=== PATIENT | female | born 2000 | race Caucasian/White ===

== ENCOUNTER 2020-03-19 04:17 | Observation (INO) ==
[2020-03-19] MEDS ORDERED: KETOROLAC TROMETHAMINE 15 MG/ML VIAL IV STA (04:29)
[2020-03-19] MEDS ORDERED: SODIUM CHLORIDE 0.9% 500 ML IV STA (04:29)
[2020-03-19] MEDS ORDERED: ONDANSETRON INJ 2 MG/ML 2 ML VIAL IV STA ×2 (04:34→05:29)
[2020-03-19] MEDS ORDERED: SODIUM CHLORIDE 0.9% 1000ML 1,000 ML IV ONE (04:34)
[2020-03-19] MEDS ORDERED: MoRPHine SULFATE 4 MG/ML 1 ML CARP\\VIAL IV STA ×2 (04:34→05:29)
--- NOTE | 2020-03-19 04:36 | Emergency Department Note ---
History of Present Illness General Chief complaint: Kidney Stone Stated complaint: KIDNEY STONE Time Seen by Provider: 03/19/20 04:29 History of Present Illness Maximum Pain Intensity: 10 This 20-year-old presents to the ER complaining of left flank pain that goes to her groin Location: Left flank Quality: Painful Severity: Moderate Duration: Today Timing: Today Context: Patient was concerned and came in Modifying factors: better with nothing; worse with activity Patient denies chest pain, dyspnea, fevers, urinary symptoms, vaginal itching or discharge. Last menstrual was 3 weeks ago. No prior abdominal surgeries. Home Medications Home Medications Medication Instructions Recorded Confirmed Type desogestrel-ethinyl estradiol 1 tab PO HS 06/21/19 03/19/20 History [Velivet Triphasic Regimen (28)] dextroamphetamine-amphetamine 10 mg PO QAM 06/21/19 03/19/20 History meloxicam 15 mg PO DIRECTED PRN 06/21/19 03/19/20 History topiramate 50 mg PO HS 06/21/19 03/19/20 History cefdinir 300 mg PO BID 6 Days #12 cap 03/19/20 Rx ondansetron 4 mg PO Q6H PRN #30 tab 03/19/20 Rx oxycodone 5 mg PO Q6H PRN #7 tab 03/19/20 Rx tamsulosin 0.4 mg PO HS #7 cap 03/19/20 Rx Allergies Allergy/AdvReac Type Severity Reaction Status Date / Time Penicillins Allergy Intermediate Rash Verified 03/19/20 04:58 Past Med/Surg History Medical History (Updated 03/19/20 @ 14:05 by GUCCI Leavitt) ADHD COVID-19 Depression Migraine PCOS (polycystic ovarian syndrome) Surgical History No pertinent past surgical history Family History Other No pertinent family history Social History (Updated 03/19/20 @ 08:58 by Brent Cardona PA-C) Smoking Status: Former smoker Tobacco Type: E-cigarettes / Vaping Age Quit Using Tobacco: 20; Cigarettes Per Day: Quit 7 months ago; Second Hand Exposure: No; Do You Dip or Chew Tobacco: No; Tobacco Cessation Education Requested by Patient: No Hx Alcohol Use: Yes Alcohol type: beer and hard liquor Hx Substance Use: No Preferred Language: Bulgarian Or Scrub Tech Required: Yes Beliefs That Will Affect Care: None Current Living Situation: Other Current Living Situation Comment: College student- Lives off campus with (3) room mates current occupational status: employed and student Other Information That Helps Us Care for You: No Feels Safe at Home: Yes Safety Concerns: Feels Safe At This Time Review of Systems A total of 10 systems reviewed and were otherwise negative Physical Exam Vital Signs Vital Signs - 24 hr 03/19/20 04:20 03/19/20 05:35 03/19/20 07:28 Pulse Rate 67 Pulse Rate [Finger] 65 88 Respiratory Rate 22 18 16 Respiratory Effort / Characteristics Non-Labored Spontaneous Non-Labored Spontaneous Respiratory Depth Normal Normal Respiratory Pattern Regular Regular Blood Pressure 117/63 Blood Pressure [Left Arm] 113/77 116/82 Blood Pressure Mean 81 Blood Pressure Mean [Left Arm] 89 93 Blood Pressure Position Sitting Blood Pressure Position [Left Arm] Lying Lying Pulse Oximetry 98 100 100 Oxygen Delivery Method Room Air Room Air Room Air Sepsis Recent Fever Within 48 Hours No Sepsis New/Unexplained Change in Mental Status No Sepsis Action Taken by Nursing No Action Required VITALS: Vitals are noted on the nurse's note and reviewed by myself. Vital signs stable. GENERAL: Pleasant female who appears in pain, in no acute distress, nondiaphoretic, well-developed well-nourished. SKIN: Capillary reflex less than 2 seconds. HEENT: Normocephalic. PERRLA. EOMI. Nares patent. Mucous membranes moist. Neck is supple without nuchal rigidity. HEART: Regular rate and rhythm without murmurs gallops or rubs. LUNGS: Clear to auscultation bilaterally without wheezes, rales or rhonchi. No retractions or accessory muscle use. ABDOMEN: Positive bowel sounds x 4. Normal tympanic percussion. Soft, n ontender, without masses or organomegaly. Reed sign negative. No guarding or rebound tenderness. No CVA tenderness MUSCULOSKELETAL: No gross musculoskeletal defects. NEURO: Patient was alert and oriented to person place and time. No focal neurological deficits. Course Administered Medications Acetaminophen (Acetaminophen 325 Mg Tab) 650 mg PO Q4H PRN PRN Reason: pain/fever Stop: 04/18/20 11:39 Last Admin: 03/19/20 18:02 Dose: 650 mg Documented by: [id number] Hydromorphone HCl (Hydromorphone Inj 0.5 Mg/0.5 Ml Syr) 0.5 mg IV Q4H PRN PRN Reason: Pain Stop: 04/02/20 11:59 Last Admin: 03/19/20 20:20 Dose: 0.5 mg Documented by: [id number] Sodium Chloride (Nss 1000ml) 1,000 mls @ 150 mls/hr IV .Q6H40M PETE Stop: 04/18/20 08:59 Last Admin: 03/19/20 17:32 Dose: 150 mls/hr Documented by: [id number] Infusion: 03/19/20 17:12 Dose: 150 mls/hr Documented by: [id number] Admin: 03/19/20 10:31 Dose: 150 mls/hr Documented by: [id number] Tamsulosin HCl (Tamsulosin Hcl 0.4 Mg Cap) 0.4 mg PO HS [facility] Stop: 04/18/20 20:59 Last Admin: 03/19/20 20:28 Dose: 0.4 mg Documented by: [id number] Topiramate (Topiramate 50 Mg Tab) 50 mg PO HS [facility] Stop: 04/18/20 20:59 Last Admin: 03/19/20 20:20 Dose: Not Given Documented by: [id number] Discontinued Medications Hydromorphone HCl (Hydromorphone Inj 0.5 Mg/0.5 Ml Syr) Confirm Administered Dose 0.5 mg .ROUTE .STK-MED ONE Stop: 03/19/20 10:26 Last Admin: 03/19/20 10:29 Dose: Not Given Documented by: [id number] Hydromorphone HCl (Hydromorphone Inj 0.5 Mg/0.5 Ml Syr) 0.5 mg IV NOW STA Stop: 03/19/20 10:27 Last Admin: 03/19/20 10:28 Dose: 0.5 mg Documented by: [id number] Sodium Chloride (Nss) 500 mls @ 999 mls/hr IV .Q31M STA Stop: 03/19/20 04:59 Last Admin: 03/19/20 05:57 Dose: Not Given Documented by: [id number] Sodium Chloride (Nss 1000ml) 1,000 mls @ 999 mls/hr IV .Q1H1M ONE Stop: 03/19/20 05:34 Last Infusion: 03/19/20 05:43 Dose: 0 mls/hr Documented by: [id number] Admin: 03/19/20 04:42 Dose: 999 mls/hr Documented by: [id number] Ceftriaxone Sodium (Rocephin) 2,000 mg in 70 mls @ 140 mls/hr IV NOW STA Stop: 03/19/20 09:18 Last Infusion: 03/19/20 09:43 Dose: 0 mls/hr Documented by: [id number] Admin: 03/19/20 09:07 Dose: 140 mls/hr Documented by: [id number] Influenza Virus Vaccine Quadrival (Influenza Virus Quad Vaccine 0.5 Ml Syr) 0.5 ml IM .ONCE ONE Stop: 03/19/20 12:10 Last Admin: 03/19/20 17:32 Dose: 0.5 ml Documented by: [id number] Ketorolac Tromethamine (Ketorolac Tromethamine 15 Mg/Ml Vial) 10 mg IV NOW STA Stop: 03/19/20 04:30 Last Admin: 03/19/20 04:42 Dose: 10 mg Documented by: [id number] Morphine Sulfate (Morphine Sulfate 4 Mg/Ml 1 Ml Carp\Vial) 4 mg IV NOW STA Stop: 03/19/20 04:35 Last Admin: 03/19/20 04:45 Dose: 4 mg Documented by: [id number] Morphine Sulfate (Morphine Sulfate 4 Mg/Ml 1 Ml Carp\Vial) 4 mg IV NOW STA Stop: 03/19/20 05:30 Last Admin: 03/19/20 05:35 Dose: 4 mg Documented by: [id number] Morphine Sulfate (Morphine Sulfate 2 Mg/Ml Carp) 2 mg IV NOW STA Stop: 03/19/20 07:52 Last Admin: 03/19/20 08:17 Dose: 2 mg Documented by: [id number] Ondansetron HCl (Ondansetron Inj 2 Mg/Ml 2 Ml Vial) 4 mg IV NOW STA Stop: 03/19/20 04:35 Last Admin: 03/19/20 04:45 Dose: 4 mg Documented by: [id number] Ondansetron HCl (Ondansetron Inj 2 Mg/Ml 2 Ml Vial) 4 mg IV NOW STA Stop: 03/19/20 05:30 Last Admin: 03/19/20 05:35 Dose: 4 mg Documented by: [id number] Oxycodone/Acetaminophen (Oxycodone/Acetaminophen 5mg/325mg Tab) 1 tab PO NOW STA Stop: 03/19/20 15:52 Last Admin: 03/19/20 16:04 Dose: 1 tab Documented by: [id number] Potassium Chloride (Potassium Chloride 10 Meq Tabcr) 30 meq PO NOW STA Stop: 03/19/20 05:51 Last Admin: 03/19/20 05:59 Dose: 30 meq Documented by: [id number] Potassium Chloride (Potassium Chloride 20 Meq Tabcr) 40 meq PO NOW STA Stop: 03/19/20 11:41 Last Admin: 03/19/20 13:13 Dose: 40 meq Documented by: [id number] Tamsulosin HCl (Tamsulosin Hcl 0.4 Mg Cap) 0.4 mg PO NOW ONE Stop: 03/19/20 05:40 Last Admin: 03/19/20 05:59 Dose: 0.4 mg Documented by: [id number] Medical Decision Making Medical Records Attestation: I reviewed the patient's medical records. Home Medications Current Medication List: was personally reviewed by me Laboratory Data Attestation: I reviewed the patient's lab results. Result diagrams: 03/19/20 04:51 03/19/20 04:51 Lab Results 03/19/20 03/19/20 03/19/20 Range/Units 04:51 04:51 04:51 WBC 12.56 H (4.8-10.8) K/uL RBC 4.26 (4.2-5.4) M/uL Hgb 12.9 (12.0-16.0) g/dL Hct 37.1 (37-47) % MCV 87.1 (80-100) fL MCH 30.3 (25-34) pg MCHC 34.8 (32-36) g/dL RDW Std Deviation 40.7 (36.4-46.3) fL RDW Coeff of Terese 12.9 (11.5-14.5) % Plt Count 240 (130-400) K/uL MPV 10.1 (7.4-10.4) fL Sodium 141 (136-145) mmol/L Potassium 3.2 L (3.5-5.1) mmol/L Chloride 112 H (98-107) mmol/L Carbon Dioxide 21 (21-32) mmol/L Anion Gap 8.0 (3-11) BUN 13 (7-18) mg/dl Creatinine 0.92 (0.6-1.2) mg/dl Est Cr Clr Drug Dosing 87.0 ml/min Est GFR ( Amer) 103.2 Est GFR (Non-Af Amer) 89.0 BUN/Creatinine Ratio 13.6 (10-20) Glucose 142 H (70-99) mg/dl Calcium 9.8 (8.5-10.1) mg/dl Magnesium 2.1 (1.8-2.4) mg/dl Urine Color Urine Appearance (Clear) Urine pH (4.5-7.5) Ur Specific [place] (1.000-1.030) Urine Protein (Negative) Urine Glucose (UA) (Negative) Urine Ketones (Negative) Urine Blood (Negative) Urine Nitrite (Negative) Urine Bilirubin (Negative) Urine Urobilinogen (Negative) Ur Leukocyte Esterase (Negative) Urine WBC (Auto) (0-5) /hpf Urine RBC (Auto) (0-4) /hpf U Hyaline Cast (Auto) (0-5) /lpf U Epithel Cells (Auto) (0-5) /lpf Urine Bacteria (Auto) (Negative) Urine Test (Negative) COVID-19 Eval Order SARS-CoV-2, RNA, NAAT (NEGATIVE) 03/19/20 03/19/20 03/19/20 Range/Units 05:39 05:39 08:10 WBC (4.8-10.8) K/uL RBC (4.2-5.4) M/uL Hgb (12.0-16.0) g/dL Hct (37-47) % MCV (80-100) fL MCH (25-34) pg MCHC (32-36) g/dL RDW Std Deviation (36.4-46.3) fL RDW Coeff of Terese (11.5-14.5) % Plt Count (130-400) K/uL MPV (7.4-10.4) fL Sodium (136-145) mmol/L Potassium (3.5-5.1) mmol/L Chloride (98-107) mmol/L Carbon Dioxide (21-32) mmol/L Anion Gap (3-11) BUN (7-18) mg/dl Creatinine (0.6-1.2) mg/dl Est Cr Clr Drug Dosing ml/min Est GFR ( Amer) Est GFR (Non-Af Amer) BUN/Creatinine Ratio (10-20) Glucose (70-99) mg/dl Calcium (8.5-10.1) mg/dl Magnesium (1.8-2.4) mg/dl Urine Color Yellow Urine Appearance Turbid A (Clear) Urine pH 5.0 (4.5-7.5) Ur Specific [place] 1.016 (1.000-1.030) Urine Protein Negative (Negative) Urine Glucose (UA) Negative (Negative) Urine Ketones 2+ H (Negative) Urine Blood 2+ H (Negative) Urine Nitrite Negative (Negative) Urine Bilirubin Negative (Negative) Urine Urobilinogen Negative (Negative) Ur Leukocyte Esterase Negative (Negative) Urine WBC (Auto) 1-5 (0-5) /hpf Urine RBC (Auto) 10-30 H (0-4) /hpf U Hyaline Cast (Auto) 5-10 H (0-5) /lpf U Epithel Cells (Auto) >30 H (0-5) /lpf Urine Bacteria (Auto) Negative (Negative) Urine Test Negative (Negative) COVID-19 Eval Order SARS-CoV-2, RNA, NAAT NEGATIVE (NEGATIVE) 03/19/20 Range/Units 08:10 WBC (4.8-10.8) K/uL RBC (4.2-5.4) M/uL Hgb (12.0-16.0) g/dL Hct (37-47) % MCV (80-100) fL MCH (25-34) pg MCHC (32-36) g/dL RDW Std Deviation (36.4-46.3) fL RDW Coeff of Terese (11.5-14.5) % Plt Count (130-400) K/uL MPV (7.4-10.4) fL Sodium (136-145) mmol/L Potassium (3.5-5.1) mmol/L Chloride (98-107) mmol/L Carbon Dioxide (21-32) mmol/L Anion Gap (3-11) BUN (7-18) mg/dl Creatinine (0.6-1.2) mg/dl Est Cr Clr Drug Dosing ml/min Est GFR ( Amer) Est GFR (Non-Af Amer) BUN/Creatinine Ratio (10-20) Glucose (70-99) mg/dl Calcium (8.5-10.1) mg/dl Magnesium (1.8-2.4) mg/dl Urine Color Urine Appearance (Clear) Urine pH (4.5-7.5) Ur Specific [place] (1.000-1.030) Urine Protein (Negative) Urine Glucose (UA) (Negative) Urine Ketones (Negative) Urine Blood (Negative) Urine Nitrite (Negative) Urine Bilirubin (Negative) Urine Urobilinogen (Negative) Ur Leukocyte Esterase (Negative) Urine WBC (Auto) (0-5) /hpf Urine RBC (Auto) (0-4) /hpf U Hyaline Cast (Auto) (0-5) /lpf U Epithel Cells (Auto) (0-5) /lpf Urine Bacteria (Auto) (Negative) Urine Test (Negative) COVID[facility]19 [facility], RNA, NAAT (NEGATIVE) Imaging Data Attestation: I personally reviewed and interpreted this imaging study as follows: MDM Narrative Prior records/ancillary studies reviewed. Triage Nursing notes reviewed. Additional history obtained from the boyfriend The patient's history was concerning for left flank pain. Differential diagnosis: Etiologies such as renal colic, appendicitis, diverticulitis, mesenteric ischemia, aortic pathology, infections, inflammatory bowel disease, PUD, biliary pathology, UTI, as well as others were entertained. Physical examination findings: As above. ER treatment provided: Toradol, morphine, Zofran, IV fluids, Flomax On reassessment the patient felt better. Diagnostic interpretation by me: The labs revealed mild leukocytosis. Urinalysis revealed There was no sign of UTI. neg hcg Imaging studies: CT ABDOMEN & PELVIS Without Contrast: 5 mm obstructing calculus in the left distal ureter near the UVJ. Mild left hydroureteronephrosis. Nonobstructing left renal calculus. Normal appendix. Levoscoliosis of the thoracolumbar spine Radiologist: Leslie Qiu M.D. Consultation: A consultation was placed with the [facility] hospitalist. The case was discussed and diagnostics were reviewed. The patient was evaluated in the ER for further treatment. It appears that the patient has isolated renal colic from a left sided stone. Patient's pain was still quite severe despite 3 rounds of pain meds. She was given Flomax. She is requesting admission. Medicine was consulted. By the evaluation outlined above emergent etiologies such as appendicitis, diverticulitis, mesenteric ischemia, aortic pathology, infections, inflammatory bowel disease, PUD, biliary pathology, UTI, as well as others were deemed relatively unlikely. The pt informed about the findings as listed above. All questions were answered and pleased with the treatment. The chart was completed utilizing [employer] Speech voice recognition software. Grammatical errors, random word insertions, pronoun errors, and incomplete sentences are an occassional consequence of this system due to software limitations, ambient noise, and hardware issues. Any formal questions or concerns about the content, text, or information contained within the body of this dictation should be directly addressed to the physician junior assistant manager for clarification. Impression & Plan Renal colic on left side, Ureterolithiasis, Intractable pain Discharge Plan Visit Data Chief Complaint: Kidney Stone Stated Complaint: KIDNEY STONE ED Provider: Natividad Kent ED Midlevel Provider: Shaye Quinones Discharge Problem: Renal colic on left side, Ureterolithiasis, Intractable pain Patient Disposition: Admitted As Inpatient Condition: Good Discharge Instructions Interventions: ED Discharge Assessment Last Done: 03/19/20 11:26
[2020-03-19 05:04] LABS: Hematocrit (blood only) 37.1 % (37-47); Hemoglobin 12.9 g/dL (12.0-16.0); Mean Corpuscular Hemoglobin 30.3 pg (25-34); Mean Corpuscular Hgb Conc 34.8 g/dL (32-36); Mean Corpuscular Volume 87.1 fL (80-100); Mean Platelet Volume 10.1 fL (7.4-10.4); Platelet Count 240 K/uL (130-400); RDW Coefficient of Variation 12.9 % (11.5-14.5); RDW Standard Deviation 40.7 fL (36.4-46.3); Red Blood Count 4.26 M/uL (4.2-5.4); White Blood Count 12.56 K/uL (4.8-10.8)
[2020-03-19 05:22] LABS: BUN Creatinine Ratio 13.6 (10-20); Calcium 9.8 mg/dl (8.5-10.1); Est GFR (African American) 103.2; Potassium 3.2 mmol/L (3.5-5.1)
[2020-03-19] MEDS ORDERED: TAMSULOSIN HCL 0.4 MG CAP PO ONE (05:39)
[2020-03-19] MEDS ORDERED: POTASSIUM CHLORIDE 10 MEQ TABCR PO STA (05:50)
[2020-03-19 05:52] LABS: Appearance Urine Turbid (Clear); Bacteria Urine Automated Negative (Negative); Bilirubin Urine Negative (Negative); Blood Urine 2+ (Negative); Color Urine Yellow; Epithelial Cell Urine Auto >30 /lpf (0-5); Glucose Urine UA Negative (Negative); Ketones Urine 2+ (Negative); Leukocyte Esterase Urine Negative (Negative); Nitrite Urine Negative (Negative); Protein Urine Negative (Negative); Specific Gravity Urine 1.016 (1.000-1.030); Urobilinogen Urine Negative (Negative)
[2020-03-19 05:54] LABS: Pregnancy Test, Urine Negative (Negative)
--- NOTE | 2020-03-19 07:12 | CT Scan Report ---
CT SCAN OF THE ABDOMEN AND PELVIS WITHOUT CONTRAST CLINICAL HISTORY: Left flank pain COMPARISON STUDY: No previous studies for comparison. TECHNIQUE: CT scan of the abdomen and pelvis was performed from the lung bases to the proximal femurs . Images are reviewed in the axial, sagittal, and coronal planes. IV contrast was not administered fo r this examination. A dose lowering technique was utilized adhering to the principles of ALARA. CT DOSE: 737.34 mGy.cm FINDINGS: Lower chest: The heart is normal in size and configuration, without pericardial effusion. The lung ba ses and pleural spaces are clear. Liver: There is mild hepatic steatosis. No focal masses are visualized on this noncontrast study. Gallbladder: Unremarkable. Spleen: Normal in size and attenuation. Pancreas: Unremarkable. Adrenal glands: Unremarkable. Kidneys: There is a 2.5 mm upper pole left renal calculus. There is left-sided hydronephrosis and hyd roureter. There is a 4 mm left UVJ calculus. Bowel: There are no transition zones indicate bowel obstruction. There is no evidence of acute divert iculitis. There is no evidence of acute appendicitis. Peritoneum: There is no intraperitoneal free air or abdominal ascites. Vasculature: The abdominal aorta is normal in course and caliber. Adenopathy: None. Pelvic viscera: The bladder, and pelvic viscera are unremarkable. Skeletal structures: No destructive osseous lesions are seen. There is thoracolumbar levoscoliosis. IMPRESSION: 1. 4 mm obstructing calculus at the level of the left UVJ 2. Left-sided nephrolithiasis ACT 112: Negative or not required by law. Electronically signed by: Ezekiel Grant M.D. 03/19/2020 7:11 AM
[2020-03-19] MEDS ORDERED: MoRPHine SULFATE 2 MG/ML CARP IV STA (07:51)
[2020-03-19] MEDS ORDERED: cefTRIAXone SODIUM 2,000 MG/70 ML BAG IV STA (08:49)
--- NOTE | 2020-03-19 09:05 | History & Physical Report ---
Date of Service March 19, 2020 Assessment & Plan (1) Ureterolithiasis: [address] abdomen pelvis Normal saline 150 mL/h Strain all urine Empirically start ceftriaxone Consult urology Keep n.p.o. with exception of ice chips until seen by urology (2) COVID-19: Positive for COVID-19 in early February. Did not require treatment Was in quarantine until 03/05/2020 Lives off campus with 3 roommates. All 3 roommates were also positive Currently with fever which is most likely associated with urolithiasis Nausea and vomiting most likely associated with urolithiasis No shortness of breath Persistent loss of taste and smell which is improving but still present Rapid assay using Her[employer] testing is currently pending (3) Hypokalemia: Most likely secondary to gastrointestinal losses from vomiting Will replete with oral replacement once nausea and vomiting is controlled Check magnesium level Follow serial labs (4) ADHD: Continue dextroamphetamine amphetamine (5) Depression: No current issues (6) Migraine: No current headache Continue topiramate (7) PCOS (polycystic ovarian syndrome): No acute findings on CT abdomen pelvis Supportive care (8) DVT prophylaxis: No chemical prophylaxis at this time pending disposition with urology for obstructing kidney stone Ambulate as tolerated SCDs when in bed Please refer to Dr. Norwood's addendum for further recommendations and treatment History of Present Illness Primary Care Provider: Shahriar Gallego MD Attending: Dr. Norwood This is a 20-year-old female with a past medical history including positive COVID-19 (completed quarantine 03/05/2020), ADHD, depression, history of migraine headaches, PCOS. The patient presented with left-sided pain that went from her umbilicus around to her left flank and into her back. She had fever at home and reported some fever here in the emergency department. She also had nausea and vomiting times several events. She reports that she was in her usual state of health until about 10:00 last night when she began having abdominal pain. The pain awoke her throughout the night and she reported to the emergency room for evaluation. A CT scan of the abdomen pelvis was positive for a 4 mm obstructing calculus on the left. Patient received analgesia while in the emergency department as well as normal saline. She continues to have some nausea but vomiting seems to be improved. She is requesting additional analgesia for her pain. She has no chest pain or tightness. She still does have some loss of taste and smell which is improving. She denies any cough or sputum production. She denies any diarrhea and reports daily bowel movements. She has no gross hematuria. She denies any melena, hematochezia, bright red blood per rectum. She has no hematemesis. The patient is a student at [employer] and lives off campus. She has 3 roommates. All of them tested positive for COVID-19 earlier in February. The patient still has residual symptoms. She denies tobacco abuse in the form of cigarettes or smokeless tobacco. She does report history of vaping with a 1-1/2-year history and states that she quit over the summer. She also reports intermediate use of marijuana but has not used that since the summer as well. She has no other history of substance abuse or ethanol abuse. The patient did have a urine test which is negative. She denies history of STD. Allergies Allergy/AdvReac Type Severity Reaction Status Date / Time Penicillins Allergy Intermediate Rash Verified 03/19/20 04:58 Home Medications Home Medications Medication Instructions Recorded Confirmed Type desogestrel-ethinyl estradiol 1 tab PO HS 06/21/19 03/19/20 History [Velivet Triphasic Regimen (28)] dextroamphetamine-amphetamine 10 mg PO QAM 06/21/19 03/19/20 History meloxicam 15 mg PO DIRECTED PRN 06/21/19 03/19/20 History topiramate 50 mg PO HS 06/21/19 03/19/20 History cefdinir 300 mg PO BID 6 Days #12 cap 03/19/20 Rx ondansetron 4 mg PO Q6H PRN #30 tab 03/19/20 Rx oxycodone 5 mg PO Q6H PRN #7 tab 03/19/20 Rx tamsulosin 0.4 mg PO HS #7 cap 03/19/20 Rx Past Med/Surg History Medical History (Updated 03/19/20 @ 14:05 by GUCCI Leavitt) ADHD COVID-19 Depression Migraine PCOS (polycystic ovarian syndrome) Surgical History No pertinent past surgical history Family History Other No pertinent family history Social History (Updated 03/19/20 @ 08:58 by Brent Cardona PA-C) Smoking Status: Former smoker Tobacco Type: E-cigarettes / Vaping Age Quit Using Tobacco: 20; Cigarettes Per Day: Quit 7 months ago; Second Hand Exposure: No; Do You Dip or Chew Tobacco: No; Tobacco Cessation Education Requested by Patient: No Hx Alcohol Use: Yes Alcohol type: beer and hard liquor Hx Substance Use: No Preferred Language: [place] Commercial Manager Required: Yes Beliefs That Will Affect Care: None Current Living Situation: Other Current Living Situation Comment: College student- Lives off campus with (3) room mates current occupational status: employed and student Other Information That Helps Us Care for You: No Feels Safe at Home: Yes Safety Concerns: Feels Safe At This Time Review of Systems Review of Systems: All systems reviewed & are unremarkable except as noted in HPI & below Physical Exam Physical Exam: GENERAL : No acute distress EYES: No icterus, gaze conjugate. Pupils equal round and reactive to light NOSE: No evidence of epistaxis MOUTH: No lesions or candidiasis. Mucosa dry. Good oral hygiene. NECK: Supple LUNGS: CTA B/L, no wheezes, rales or rhonchi HEART: Regular, rate controlled ABDOMEN: Soft, ND, BS Present. Patient is tender to palpation on the left lower quadrant EXTREMITIES: No LE edema, pedal pulses intact intact and equal bilaterally. Tattoo noted on the medial aspect of the right ankle. NEURO: A&OX3. Cranial nerves II through XII appear grossly intact without focal deficit Results & Data Results & Data ([facility]) Vital Signs (Past 12 Hours) Vital Signs Pulse Pulse Resp BP BP Pulse Ox 03/19/20 07:28 88 16 116/82 100 03/19/20 05:35 65 18 113/77 100 03/19/20 04:20 67 22 117/63 98 Laboratory Results 03/19/20 04:51 03/19/20 04:[address] SCAN OF THE ABDOMEN AND PELVIS WITHOUT CONTRAST CLINICAL HISTORY: Left flank pain COMPARISON STUDY: No previous studies for comparison. TECHNIQUE: CT scan of the abdomen and pelvis was performed from the lung bases to the proximal femurs. Images are reviewed in the axial, sagittal, and coronal planes. IV contrast was not administered for this examination. A dose lowering technique was utilized adhering to the principles of ALARA. CT DOSE: 737.34 mGy.cm FINDINGS: Lower chest: The heart is normal in size and configuration, without pericardial effusion. The lung bases and pleural spaces are clear. Liver: There is mild hepatic steatosis. No focal masses are visualized on this noncontrast study. Gallbladder: Unremarkable. Spleen: Normal in size and attenuation. Pancreas: Unremarkable. Adrenal glands: Unremarkable. Kidneys: There is a 2.5 mm upper pole left renal calculus. There is left-sided hydronephrosis and hydroureter. There is a 4 mm left UVJ calculus. Bowel: There are no transition zones indicate bowel obstruction. There is no evidence of acute diverticulitis. There is no evidence of acute appendicitis. Peritoneum: There is no intraperitoneal free air or abdominal ascites. Vasculature: The abdominal aorta is normal in course and caliber. Adenopathy: None. Pelvic viscera: The bladder, and pelvic viscera are unremarkable. Skeletal structures: No destructive osseous lesions are seen. There is thoracolumbar levoscoliosis. IMPRESSION: 1. 4 mm obstructing calculus at the level of the left UVJ 2. Left-sided nephrolithiasis Electronically signed by: Ezekiel Grant M.D. 03/19/2020 7:11 AM Code Status & VTE Plan Code Status Level I: Full resuscitation VTE Prophylaxis Plan VTE Prophylaxis will be ordered: Yes Supervising Physician Co-Signing Physician Notes I personally examined the patient and verified all neal points of history and exam, discussed case, and agree with decision making with Shubham RAMIREZ seen later in the day - initially when i saw her she was feeling a good deal better and thought maybe about going home - we discussed trial of PO pain meds. ordered a dose as she noted that pain was starting to increase some again. later revisited - she noted that the pain had gotten to a 10 before PO pain meds - but then down to a 2 with them. wanted to see how she felt a little longer - revisited yet again - pain increasing again and worried about going home -- disc ussed uncontrolled pain certainly makes it reasonable to stay vitals noted heent nc at mmm breathing unlabored no accessory muscles good effort skin no rashes no pallor or icterus ureterolithiasis, intractable pain -pain control, fluids. -add flomax -w fever - abx, follow -appears improving PG Care Time/CCT Total # of Minutes Spent Total Time Spent with Patient: Total time spent is greater than 50% in coordination of care (as documented) at patient's floor/unit and/or counseling patient: 50 minutes Coding Level of Care Code 40450 OBS Care - Level 3 Diagnoses Ureterolithiasis N20.1 COVID-19 U07.1 Hypokalemia E87.6 ADHD F90.9 Depression F32.9 Migraine G43.909 PCOS (polycystic ovarian syndrome) E28.2 DVT prophylaxis Z29.9
[2020-03-19] MEDS ORDERED: HYDROmorphone INJ 0.5 MG/0.5 ML SYR ONE (10:25)
[2020-03-19] MEDS ORDERED: HYDROmorphone INJ 0.5 MG/0.5 ML SYR IV STA (10:26)
[2020-03-19] MEDS: SODIUM CHLORIDE 0.9% 1000ML 1,000 ML IV SCH ×3 (10:31→23:24)
[2020-03-19] MEDS ORDERED: POTASSIUM CHLORIDE CRTAB 20 MEQ TABCR PO STA (11:40)
[2020-03-19] MEDS ORDERED: ONDANSETRON INJ 2 MG/ML 2 ML VIAL IV PRN (11:40)
[2020-03-19] MEDS ORDERED: INFLUENZA ADMINISTRATION CHARGE ONE (12:09)
[2020-03-19] MEDS ORDERED: INFLUENZA VIRUS QUAD VACCINE 0.5 ML SYR IM ONE (12:09)
--- NOTE | 2020-03-19 14:06 | Urology Consultation ---
Date of Consultation March 19, 2020 Assessment & Plan (1) Left ureteral stone: 20yo F admitted with L flank pain, nausea, and vomiting secondary to a 4mm left ureteral stone with hydronephrosis -Plan of care reviewed with Dr. Gomez -Patient afebrile, creatinine is stable -Discussed options for acute stone management with ureteroscopy, stone extraction, and stent -Discussed outpatient options for conservative measures with max expulsion medical therapy -Discussed possible outpatient ESWL, KUB ordered -Risks/benefits of all procedures discussed -Patient prefers trial of passage with possible outpatient ESWL next Monday if she does not pass the stone before then -No acute intervention planned today -Ok to have a diet back -Will tentatively schedule her for Left ESWL next Monday, repeat KUB prior to procedure -Reviewed in detail signs/symptoms that would warrant return to the hospital, patient verbalized an understanding. -Reviewed risks/benefits of ESWL as per consent, all questions were answered. -Recommend home with Tamsulosin and pain control. -Continue to strain all urine -Ok for discharge from perspective -Will follow-up outpatient with Urology service to arrange elective procedure -Patient agreeable to above plan. Please consult our service urgently if patient develops fever >101F, intractable pain or nausea, as this will necessitate urgent surgical intervention. Thank you for the consultation and we will continue to monitor closely with primary servic eAlivia History of Present Illness Attending Physician: Tavo Norowod DO History of Present Illness 20yo F, with PMHx including ADHD, depression, history of migraine headaches, and PCOS who presented to the ER with c/o L flank pain, nausea, vomiting, and fevers. A CT scan of the abdomen pelvis was positive for a 4 mm obstructing calculus on the left. She was admitted for pain control and IVF. Urology consulted for 4mm left UVJ Stone with hydro Has not followed with Urology in the past No prior personal or family hx of stones Chart review: Afebrile WBC 12.56 Cr 0.92 Hgb 12.9 UA- 2+blood, negative leuks, negative bacteria, negative nitrites Imaging -CT abd/pelvis IMPRESSION: 1. 4 mm obstructing calculus at the level of the left UVJ 2. Left-sided nephrolithiasis KUB- IMPRESSION: Unchanged positioning of the left distal ureteral calculus. Patient examined at bedside this afternoon. Awake, resting in bed on arrival. Reports some improvement in L flank pain with IV pain medication. No recent nausea or vomiting. Denies fevers or chills. Denies hematuria and dysuria. No urinary frequency/urgency. Has been NPO. Reports no passage of stone, has been straining all urine. Allergies Allergy/AdvReac Type Severity Reaction Status Date / Time Penicillins Allergy Intermediate Rash Verified 03/19/20 04:58 Home Medications Home Medications Medication Instructions Recorded Confirmed Type desogestrel-ethinyl estradiol 1 tab PO HS 06/21/19 03/19/20 History [Velivet Triphasic Regimen (28)] dextroamphetamine-amphetamine 10 mg PO QAM 06/21/19 03/19/20 History meloxicam 15 mg PO DIRECTED PRN 06/21/19 03/19/20 History topiramate 50 mg PO HS 06/21/19 03/19/20 History Patient History Medical History (Updated 03/19/20 @ 14:05 by GUCCI Leavitt) ADHD COVID-19 Depression Migraine PCOS (polycystic ovarian syndrome) Surgical History No pertinent past surgical history Family History Other No pertinent family history Social History (Updated 03/19/20 @ 08:58 by Brent Cardona PA-C) Smoking Status: Former smoker Tobacco Type: E-cigarettes / Vaping Age Quit Using Tobacco: 20; Cigarettes Per Day: Quit 7 months ago; Second Hand Exposure: No; Do You Dip or Chew Tobacco: No; Tobacco Cessation Education Requested by Patient: No Hx Alcohol Use: Yes Alcohol type: beer and hard liquor Hx Substance Use: No Preferred Language: Vietnamese Gold Letterer Required: Yes Beliefs That Will Affect Care: None Current Living Situation: Other Current Living Situation Comment: College student- Lives off campus with (3) room mates current occupational status: employed and student Other Information That Helps Us Care for You: No Feels Safe at Home: Yes Safety Concerns: Feels Safe At This Time Review of Systems Review of Systems: All systems reviewed & are unremarkable except as noted in HPI & below Physical Exam Constitutional: well developed and well nourished; no acute distress and not ill appearing Neck: normal visual inspection Respiratory: normal respiratory effort and able to speak in complete sentences Cardiovascular: Extremities: no pedal edema Gastrointestinal (Abdomen): Inspection/Auscultation: abdomen normal to inspection Musculoskeletal: Head/Neck/Chest: normocephalic Skin: no rashes, warm and dry Neurologic: awake; not confused Psychiatric: Orientation: alert, oriented x 3 and cooperative Results & Data ([facility]) Vital Signs (Past 12 Hours) Vital Signs Temp Pulse Pulse Resp BP BP Pulse Ox 03/19/20 11:35 36.7 C 96 H 16 126/82 100 03/19/20 11:16 103 H 18 118/74 100 03/19/20 10:32 78 18 128/77 96 03/19/20 09:20 71 16 128/77 98 03/19/20 07:28 88 16 116/82 100 03/19/20 05:35 65 18 113/77 100 03/19/20 04:20 67 22 117/63 98 PG Care Time/CCT Total # of Minutes Spent Total Time Spent with Patient: Total time spent is greater than 50% in coordination of care (as documented) at patient's floor/unit and/or counseling patient: Coding Level of Care Code 95083 Inpt Consult Level 4 Diagnoses Left ureteral stone N20.1
--- NOTE | 2020-03-19 15:10 | XRay Report ---
KUB HISTORY: Follow up study in a patient with left ureteral calculus Left ureteral stone COMPARISON: CT abdomen and pelvis 03/19/2020 FINDINGS: The bowel gas pattern is non-obstructive. There is no organomegaly. Renal shadows are part ially obscured by bowel gas. The known left renal calculi are not definitively seen. Unchanged positi oning of the 4 mm left distal ureteral calculus. No pneumoperitoneum or pneumatosis. Sigmoidal thorac olumbar scoliosis. No fracture. IMPRESSION: Unchanged positioning of the left distal ureteral calculus. ACT 112: Negative or not required by law. The above report was generated using voice recognition software. It may contain grammatical, syntax o r spelling errors. Electronically signed by: Joseph Chavira M.D. 03/19/2020 3:09 PM
[2020-03-19] MEDS ORDERED: oxyCODONE/ACETAMINOPHEN 5mg/325mg TAB PO STA (15:51)
[2020-03-19] MEDS: ACETAMINOPHEN 325 MG TAB PO PRN ×2 (18:02→22:05)
[2020-03-19] MEDS: HYDROmorphone INJ 0.5 MG/0.5 ML SYR IV PRN (20:20)
[2020-03-19] MEDS ORDERED: TAMSULOSIN HCL 0.4 MG CAP PO SCH (21:00)
[2020-03-19] MEDS ORDERED: TOPIRAMATE 50 MG TAB PO SCH (21:00)
[2020-03-19] MEDS ORDERED: KETOROLAC TROMETHAMINE 15 MG/ML VIAL IV ONE (23:46)
[2020-03-20] MEDS: SODIUM CHLORIDE 0.9% 1000ML 1,000 ML IV SCH (05:34)
[2020-03-20] MEDS: HYDROmorphone INJ 0.5 MG/0.5 ML SYR IV PRN ×2 (06:18→10:15)
[2020-03-20] MEDS: ACETAMINOPHEN 325 MG TAB PO PRN ×2 (06:34→14:55)
[2020-03-20 06:41] LABS: Basophils # (auto) 0.01 K/uL (0-0.2); Basophils % (auto) 0.1 %; Eosinophils # (auto) 0.05 K/uL (0-0.5); Eosinophils % (auto) 0.5 %; Hematocrit (blood only) 32.4 % (37-47); Hemoglobin 10.9 g/dL (12.0-16.0); Immature Granulocytes # (auto) 0.02 K/uL (0.00-0.02); Immature Granulocytes % (auto) 0.2 %; Lymphocytes # (auto) 1.89 K/uL (1.2-3.4); Lymphocytes % (auto) 20.2 %; Mean Corpuscular Hemoglobin 30.1 pg (25-34); Mean Corpuscular Hgb Conc 33.6 g/dL (32-36); Mean Corpuscular Volume 89.5 fL (80-100); Mean Platelet Volume 10.1 fL (7.4-10.4); Monocytes # (auto) 0.82 K/uL (0.11-0.59); Monocytes % (auto) 8.8 %; Neutrophils # (auto) 6.56 K/uL (1.4-6.5); Neutrophils % (auto) 70.2 %; Platelet Count 182 K/uL (130-400); RDW Coefficient of Variation 12.9 % (11.5-14.5); RDW Standard Deviation 41.8 fL (36.4-46.3); Red Blood Count 3.62 M/uL (4.2-5.4); White Blood Count 9.35 K/uL (4.8-10.8)
[2020-03-20 07:13] LABS: BUN Creatinine Ratio 7.1 (10-20); Calcium 8.2 mg/dl (8.5-10.1); Creatinine Clr Calc Pharmacy 80.9 ml/min; Est GFR (African American) 94.4; Est GFR (Non-African American) 81.5
--- NOTE | 2020-03-20 08:33 | Urology Progress Note ---
Date of Service March 20, 2020 Assessment & Plan (1) Left ureteral stone: Risks and benefits discussed at length for procedure. These include bleeding, infection, injury to surrounding tissues or organs, and risks associated with anesthesia. Patient states understanding and agrees to proceed. Will sign consent and schedule. Plan for cystoscopy with left stent and possible left ureteroscopy and stone basket extraction and/or laser lithotripsy. Patient has history of COVID and is past the isolation period with a negative test yesterday. Nothing to eat since last evening at dinner. Admission and Anticipated Discharge Date Admission Date: March 19, 2020 Subjective Patient admitted with stone and discomfort. Patient is afebrile. Has been und ergoing maximum expulsion therapy with oral medications, IV medications, IV fluids, and oral intake. Is doing worse this am with increased episodes of pain with bother. No bleeding, fevers, or major issues. Has not developed severe vomiting or other issues. Has not experienced fever or chills. Has been tolerating oral medications. Is tolerating fluids. Has noticed some frequency and urgency. Does have occasional burning and irritation. Patient does not believe the passed a stone. Has not passed a large amount of blood or debris that may be the stone. Review of Systems Review of Systems: All systems reviewed & are unremarkable except as noted in HPI & below Physical Exam Physical Exam: General: Alert in no acute distress. HEENT: Normocephalic Atraumatic. Inspection normal. Cranial Nerves 2-12 Grossly intact. Normal inspection of face. Normal inspection of neck. Psychologic: Normal affect. Respiratory: Nonlabored. No use of accessory muscles. No tachypnea or dyspnea. Cardiovascular: No tachycardia Skin: [place] and Dry. No rashes or visible lesions. Extremities/Lymphatics: No edema Abdomen: Soft Non-distended. No rebound or guarding. Results & Data ([facility]) Vital Signs (Past 12 Hours) Vital Signs Temp Pulse Resp BP Pulse Ox 03/20/20 07:41 37.1 C 90 16 110/71 96 03/19/20 23:26 37.2 C 83 14 124/80 96 PG Care Time/CCT Total # of Minutes Spent Total Time Spent with Patient: Total time spent is greater than 50% in coordination of care (as documented) at patient's floor/unit and/or counseling patient: Coding Level of Care Code 70792 Subseq Hosp Care Lvl 3 Diagnoses Left ureteral stone N20.1
[2020-03-20] MEDS ORDERED: DEXTROAMPHETAMINE/AMPHETAMINE ER 10 MG CAP PO SCH (09:00)
[2020-03-20] MEDS ORDERED: CIPROFLOXACIN / D5W 400 MG/200 ML BAG IV SCH (09:00)
--- NOTE | 2020-03-20 09:21 | XRay Report ---
XR chest 2V PA/lateral HISTORY: pre op COMPARISON: None. FINDINGS: The lungs are clear. Cardiac silhouette is normal in size. No pleural effusions. No pneumot horax. Mild S-shaped scoliosis of the thoracolumbar spine. IMPRESSION: No acute process. Mild scoliosis. ACT 112: Negative or not required by law. Electronically signed by: Raul Quiñones M.D. 03/20/2020 9:20 AM
[2020-03-20] MEDS ORDERED: LIDOCAINE HCL 2% 2 ML VIAL/AMP(20MG/ML) INFIL ONE (10:12)
[2020-03-20] MEDS ORDERED: MIDAZOLAM HCL 1 MG/ML 2ML VIAL ONE ×2 (10:12→10:13)
[2020-03-20] MEDS ORDERED: PROPOFOL IV EMULSION 10 MG/ML 20 ML VIAL IV ONE (10:12)
[2020-03-20] MEDS ORDERED: fentaNYL citrate 100 MCG/2 ML VIAL ONE (10:13)
--- NOTE | 2020-03-20 10:18 | Anesthesiology Consultation ---
Date of Service March 20, 2020 Assessment & Plan (1) Encounter for pre-operative examination: Chart Review Chart Review: Acceptable Risk for Surgery (COVID test today pending ) History Surgery Operation Date: 03/20/20 11:40 Proposed Procedures p Cystoscopy, Left Stent Insertion - Hiren Lion DO Height/Weight Height: 5 ft 2 in Weight: 67.3 kg Allergies Allergy/AdvReac Type Severity Reaction Status Date / Time Penicillins Allergy Intermediate Rash Verified 03/19/20 04:58 Medications Home Medications Medication Instructions Recorded Confirmed Last Taken desogestrel-ethinyl estradiol 1 tab PO HS 06/21/19 03/19/20 03/18/20 [Velivet Triphasic Regimen (28)] dextroamphetamine-amphetamine 10 mg PO QAM 06/21/19 03/19/20 03/18/20 meloxicam 15 mg PO DIRECTED PRN 06/21/19 03/19/20 06/20/19 17:00 topiramate 50 mg PO HS 06/21/19 03/19/20 03/18/20 cefdinir 300 mg PO BID 6 Days #12 cap 03/19/20 Unknown ondansetron 4 mg PO Q6H PRN #30 tab 03/19/20 Unknown oxycodone 5 mg PO Q6H PRN #7 tab 03/19/20 Unknown tamsulosin 0.4 mg PO HS #7 cap 03/19/20 Unknown Active Medications Generic Name Dose Route Start Last Admin Trade Name Freq PRN Reason Stop Dose Admin Acetaminophen 650 mg 03/19/20 11:40 03/20/20 06:34 Acetaminophen 325 Mg Tab PO 04/18/20 11:39 650 mg Q4H PRN Administration pain/fever Hydromorphone HCl 0.5 mg 03/19/20 12:00 03/20/20 10:15 Hydromorphone Inj 0.5 Mg/0.5 Ml Syr IV 04/02/20 11:59 0.5 mg Q4H PRN Administration Pain Sodium Chloride 1,000 mls @ 150 mls/hr 03/19/20 09:00 03/20/20 09:27 Nss 1000ml IV 04/18/20 08:59 0 mls/hr .[id number] PETE Infusion Ciprofloxacin 400 mg in 200 mls @ 100 mls/hr 03/20/20 09:00 03/20/20 09:27 Cipro / D5w IV 03/20/20 18:00 100 mls/hr PREOP PETE Administration Protocol Ondansetron HCl 4 mg 03/19/20 11:40 03/20/20 09:27 Ondansetron Inj 2 Mg/Ml 2 Ml Vial IV 04/18/20 11:39 4 mg Q6H PRN Administration Nausea Tamsulosin HCl 0.4 mg 03/19/20 21:00 03/19/20 20:28 Tamsulosin Hcl 0.4 Mg Cap PO 04/18/20 20:59 0.4 mg HS PETE Administration Topiramate 50 mg 03/19/20 21:00 03/19/20 20:20 Topiramate 50 Mg Tab PO 04/18/20 20:59 Not Given HS PETE Past Medical History Medical History (Updated 03/20/20 @ 10:18 by Shahriar Kelly MD) ADHD Anemia COVID-19 Ended quarantine 03/05 Depression Migraine PCOS (polycystic ovarian syndrome) Past Family History Family History Other No pertinent family history Past Surgical History Surgical History No pertinent past surgical history Social History Smoking Status: Former smoker tobacco type: e-cigarettes Smoking cigarettes per day: Quit 7 months ago Do You Dip or Chew Tobacco: No Hx Alcohol Use: Yes Alcohol type: beer and hard liquor alcohol intake frequency: a few times a month Alcohol Intake Frequency Comment: Pt drinks socially Hx Substance Use: No substance use type: does not use Physical Exam Vital Signs Last Vital Signs Temp 37.1 C 03/20/20 07:41 Pulse 90 03/20/20 07:41 Resp 16 03/20/20 07:41 BP 110/71 03/20/20 07:41 Pulse Ox 96 03/20/20 07:41 Testing Laboratory Results 03/20/20 05:34 03/20/20 05:34 Urine Color Yellow 03/19/20 05:39 Urine Appearance Turbid (Clear) A 03/19/20 05:39 Urine pH 5.0 (4.5-7.5) 03/19/20 05:39 Ur Specific [place] 1.016 (1.000-1.030) 03/19/20 05:39 Urine Protein Negative (Negative) 03/19/20 05:39 Urine Glucose (UA) Negative (Negative) 03/19/20 05:39 Urine Ketones 2+ (Negative) H 03/19/20 05:39 Urine Nitrite Negative (Negative) 03/19/20 05:39 Ur Leukocyte Esterase Negative (Negative) 03/19/20 05:39 Urine WBC (Auto) 1-5 /hpf (0-5) 03/19/20 05:39 Urine RBC (Auto) 10-30 /hpf (0-4) H 03/19/20 05:39 U Hyaline Cast (Auto) 5-10 /lpf (0-5) H 03/19/20 05:39 U Epithel Cells (Auto) >30 /lpf (0-5) H 03/19/20 05:39 Urine Bacteria (Auto) Negative (Negative) 03/19/20 05:39 Urine Test Negative (Negative) 03/19/20 05:39 03/19/20 05:39 Urine Test Negative
[2020-03-20] MEDS ORDERED: fentaNYL citrate 100 MCG/2 ML VIAL IV PRN (10:58)
[2020-03-20] MEDS ORDERED: ONDANSETRON INJ 2 MG/ML 2 ML VIAL IV PRN (10:58)
[2020-03-20] MEDS ORDERED: ATROPINE SULFATE 0.1 MG/ML 10ML SYR IV PRN (10:58)
--- NOTE | 2020-03-20 11:39 | Operative Report ---
PG Post Operative Report Pre & Post Diagnosis Operation Date: 03/20/20 11:40 Pre-Op Diagnosis: OBSTRUCTING UROLITHIASIS Post-Op Diagnosis: OBSTRUCTING UROLITHIASIS I identified the patient and participated in the time-out.: Yes Procedure Operation Date: 03/20/20 11:40 Actual Procedures p Cystoscopy, Left ueteroscopy, stone basket extraction. ureteral dilation, retrograde pyelogram, and Stent Insertion(Left) - Hiren Lion, Surgeon Hiren Lion, II, DO Custody Assistant None Estimated Blood Loss 1 Findings Consistent with Post-Op Diagnosis Stone fragment removed after dilating ureter. Specimens Stone Fragment Drains 4.8 Fr Double J stent without tether Anesthesia Type General Complications none Disposition Disposition: Recovery Room Indications Patient with bothersome stones. Risks and benefits discussed at length. Description of Procedure Patient was consented and brought back to the operating room. Patient was placed under anesthesia in the supine position and moved to the dorsal lithotomy position. Patient was prepped and draped in the regular sterile fashion. A time out was completed. A 30degree Cystoscope was placed into the bladder and the entire bladder was examined. The UO's were identified. The UO was cannulized with a catheter and a retrograde pyelogram was completed. A wire was then placed and the narrowed UO was dilated. The Rigid ureteroscope was taken into the ureter. The stone was identified. The stone was grasped and removed and sent for analysis. The entire area was once again examined. No residual large fragments or areas of concern were noted. The scope was slowly removed with the wire left in place. Contrast was placed through the scope for a pyelogram to assist in stent placement. The entire ureter was examined as the scope was slowly removed. No obstructions or other areas of concern were noted. With the wire in place, a 4.8 Fr Double J stent was placed. It was confirmed with fluoroscopy. With the stent in place, the bladder was emptied. The scope was removed. The patient was cleaned, aroused from anesthesia, and transferred to the pacu in stable condition having tolerated the procedure well with no complications. I was present and participated in all aspects of the procedure. The patient will be monitored in the PACU until transferred. I attest to the content of the Intraoperative Record and any orders documented therein. Any exceptions are noted below.
--- NOTE | 2020-03-20 12:03 | Fluoroscopy Report ---
FL retrograde includes kub CLINICAL HISTORY: LT CYSTO/RETROGRADE/LASER/STENT COMPARISON STUDY: Abdomen and pelvis CT 03/19/2020. FLUOROSCOPY TIME: 21 seconds. FINDINGS: 5 fluoroscopic spot images of the abdomen were submitted. There is retrograde opacification of the left renal collecting system and left ureter followed by placement of a left ureteral stent w hich appears in good position. IMPRESSION: Fluoroscopy provided for left ureteral stent placement which appears in good position. ACT 112: Negative or not required by law. Electronically signed by: Raul Quiñones M.D. 03/20/2020 12:02 PM
--- NOTE | 2020-03-20 12:40 | Anesthesiology Progress Note ---
Date of Service March 20, 2020 Anesthesia Post Procedure Vital Signs Vital Signs: Temp Pulse Pulse Resp BP BP Pulse Ox 03/20/20 12:20 36.8 C 86 18 114/75 98 03/20/20 12:10 89 15 114/73 98 03/20/20 12:00 36.4 C L 84 16 113/70 97 03/20/20 11:50 89 16 112/79 99 03/20/20 11:44 36.8 C 87 20 119/62 98 03/20/20 10:51 36.9 C 89 18 121/80 99 03/20/20 07:41 37.1 C 90 16 110/71 96 03/19/20 23:26 37.2 C 83 14 124/80 96 03/19/20 15:49 36.7 C 64 16 115/71 98 Pain Intensity Left Flank: Pain Intensity: 5 Transfer of Care Handoff Completed per policy Notes Mental Status: alert / awake / arousable Patient Amnestic to Procedure: Yes Nausea / Vomiting: adequately controlled Pain: adequately controlled Airway Patency, RR, SpO2: stable & adequate BP & HR: stable & adequate Hydration State: stable & adequate Anesthetic Complications: no major complications apparent
--- NOTE | 2020-03-20 21:02 | Discharge Summary ---
Date of Service March 20, 2020 Admission HPI Per Admitting Provider Attending: Dr. Norwood This is a 20-year-old female with a past medical history including positive COVID-19 (completed quarantine 03/05/2020), ADHD, depression, history of migraine headaches, PCOS. The patient presented with left-sided pain that went from her umbilicus around to her left flank and into her back. She had fever at home and reported some fever here in the emergency department. She also had nausea and vomiting times several events. She reports that she was in her usual state of health until about 10:00 last night when she began having abdominal pain. The pain awoke her throughout the night and she reported to the emergency room for evaluation. A CT scan of the abdomen pelvis was positive for a 4 mm obstructing calculus on the left. Patient received analgesia while in the emergency department as well as normal saline. She continues to have some nausea but vomiting seems to be improved. She is requesting additional analgesia for her pain. She has no chest pain or tightness. She still does have some loss of taste and smell which is improving. She denies any cough or sputum production. She denies any diarrhea and reports daily bowel movements. She has no gross hematuria. She denies any melena, hematochezia, bright red blood per rectum. She has no hematemesis. The patient is a student at [employer] and lives off campus. She has 3 roommates. All of them tested positive for COVID-19 earlier in February. The patient still has residual symptoms. She denies tobacco abuse in the form of cigarettes or smokeless tobacco. She does report history of vaping with a 1-1/2-year history and states that she quit over the summer. She also reports intermediate use of marijuana but has not used that since the summer as well. She has no other history of substance abuse or ethanol abuse. The patient did have a urine test which is negative. She denies history of STD. Principal Diagnosis ureterolithiasis, intractable pain Discharge Exam gen aaox3 pleasant nad heent nc at mmm breathing unlabored no accessory muscles good effort skin no rashes no pallor or icterus Discharge Data Allergies Allergy/AdvReac Type Severity Reaction Status Date / Time Penicillins Allergy Intermediate Rash Verified 03/19/20 04:58 Consultations 03/19/20 05:49 ED Decision to Admit Stat 03/19/20 11:40 Consult Urology Routine Procedures Performed Operation Date: 03/20/20 11:40 Actual Procedures p Cystoscopy, Left Stent Insertion , dilation, removal of stone basket extraction(Left) - Hiren Lion DO Operation Date: 03/20/20 11:40 Pre-Op Diagnosis: OBSTRUCTING UROLITHIASIS Post-Op Diagnosis: OBSTRUCTING UROLITHIASIS I identified the patient and participated in the time-out.: Yes Procedure Operation Date: 03/20/20 11:40 Actual Procedures p Cystoscopy, Left ueteroscopy, stone basket extraction. ureteral dilation, retrograde pyelogram, and Stent Insertion(Left) - Hiren Lion DO Ordered Studies 03/19/20 04:29 CT abd pelvis wo con Urgent 03/20/20 10:30 FL retrograde includes kub Routine Hospital Course (1) Ureterolithiasis: intractable pain - initially thought outpt management but as yesterday progressed, still needing IV pain meds -taken to cysto, stone removed, stented. -stable for home -urology f/u next week (2) COVID-19: had, recovered -- all weeks prior to current admission (3) Hypokalemia: resolved (4) ADHD: (5) Depression: (6) Migraine: (7) PCOS (polycystic ovarian syndrome): (8) DVT prophylaxis: Total Time Total Time Spent Total Time Spent (In Minutes): <30 Discharge Plan Discharge Items Patient Disposition: Home - Self-Care Reason For Visit: OBSTRUCTING UROLITHIASIS Discharge Diagnosis: kidney stone Condition on Discharge: Good Activity: Resume your previous activity Non-emergency contact: Primary Care Provider and Urologist Call non-emergency contact if: you have any medication questions, your symptoms worsen, your pain is not controlled and your temperature is above 101 Follow-up/Referrals: Hiren Lion DO [Physician] - (Patient will make own appointment with ) Shahriar Gallego MD [Primary Care Provider] - Diet: Regular Addtl Attending Provider Instructions: kidney stone -the stone is fortunately small enough that it has a high likelihood of passing on its own -this can typically take several days - but as a "safety net" if the stone hasn't passed by next week the urology team will be able to do something along the lines of a lithotripsy to help get rid of it -between now and then the goals will be pain control and staying hydrated -pain control: to minimize side effect possibilities, start with a "baseline" of tylenol - a lot of people are surprised at how much it can help wh en taking it regularly. until the stone has passed, we'd recommend taking a "tylenol arthritis" dose (650mg) three times a day around the clock -for pain that is too much for the tylenol alone, add ibuprofen on top of it -- separate to the schedule of taking the tylenol, you can take 600mg of ibuprofen (3 over the counter pills) up to every six hours (take it with food since it can upset your stomach) -if you have pain that is still bad despite the tylenol and ibuprofen, then the oxycodone is for breakthrough pain - you can take it every six hours if needed as well - it is by far the most side-effect riddled of the three since it can make people groggy and cause constipation. if you do need to take it definitely don't drive. -nausea: the zofran (ondansetron) is a pretty helpful medication for nausea - you can dissolve it on your tongue up to every six hours if you need for nausea. -we'll also be sending you with a course of an antibiotic (cefdinir) -- you'll take it twice a day for 6 more days (to complete 7 days total) - your next dose of it should be tomorrow morning -lastly, we'll have you on a medicine called tamsulosin - just until the stone has passed. it is a medication that helps relax the urinary tract muscles, hopefully making it easier for the stone to pass. while it's usually pretty easy to tolerate, it can sometimes make people feel a little lightheaded or dizzy, so just go slow when you first get up from laying or sitting. -red flags: -if you have pain that is uncontrolled despite all of the above, we'd want you back to be seen right away. -if you have nausea and you aren't able to drink (far less worrisome if you're not able to eat much for a few days - but we'd want you to get seen right away again if you weren't able to drink at least a good 60 ounces a day - ideally more - but 60 ounces minimum) -if you have a fever (temp over 101F) Pending Studies at Discharge: No Stand-Alone Forms: [facility], Opioid Pain Management, Smoking Cessation Medications and DC Order Prescriptions: New cefdinir 300 mg capsule 300 mg PO BID 6 Days Qty: 12 RF: 0 tamsulosin 0.4 mg capsule 0.4 mg PO HS Qty: 7 RF: 0 ondansetron 4 mg tablet,disintegrating 4 mg PO Q6H PRN (Reason: nausea and vomiting) Qty: 30 RF: 0 oxycodone 5 mg tablet 5 mg PO Q6H PRN (Reason: pain (scale score 7-10)) Qty: 7 RF: 0 Continued meloxicam 15 mg Tablet 15 mg PO DIRECTED PRN (Reason: Migraine Headache) RF: 0 Velivet Triphasic Regimen (28) 0.1/.125/.15-25 mg-mcg tablet 1 tab PO HS RF: 0 dextroamphetamine-amphetamine 10 mg capsule,extended release 24hr 10 mg PO QAM RF: 0 topiramate 50 mg tablet 50 mg PO HS RF: 0 Discharge Orders: Discharge Order (Routine); Ordered 03/20/20 Ordered By: Tavo Norwood Admission Data Admit Date/Time: 03/19/20 09:17 Attending Provider: Tavo Norwood Admit Provider: Tavo Norwood Primary Care Provider: Shahriar Gallego Other Providers: Unruly Bey ; Hiren Lion. Other Interventions: Discharge Summary Assessment (RN) Last Done: 03/20/20 14:36 Coding Level of Care Code 59503 OBS Care - Discharge Diagnoses Ureterolithiasis N20.1 COVID-19 U07.1 Hypokalemia E87.6 ADHD F90.9 Depression F32.9 Migraine G43.909 PCOS (polycystic ovarian syndrome) E28.2 DVT prophylaxis Z29.9
--- NOTE | 2020-03-20 22:01 | Electrocardiogram Report ---
Test Reason : Blood Pressure : / mmHG Vent. Rate : 074 BPM Atrial Rate : 074 BPM P-R Int : 138 ms QRS Dur : 088 ms QT Int : 388 ms P-R-T Axes : 047 048 019 degrees QTc Int : 430 ms Normal sinus rhythm with sinus arrhythmia Normal ECG No previous ECGs available Confirmed by Estevan Davison ([id number]) on 03/20/2020 10:01:26 PM Referred By: REFERRED SELF Confirmed By:Estevan Davison
[2020-03-26 04:07] LABS: Component 2 DNR; Source URETERAL STONE
== END 2020-03-20 15:00 | disposition home or self-care (01) ==
LOC: ED 04:17 → 3W 04:17